=== PATIENT | male | born 1980 | race African-American/Black ===

== ENCOUNTER 2021-04-03 17:11 | Outpatient (REF) | payer OTHER, SELFPAY ==
--- NOTE | ~2021-04-03 | XR_ITS ---
EXAMINATION: XR FOOT, LEFT CLINICAL INFORMATION: Pain. Pain mainly base of first toe. COMPARISON: None TECHNIQUE: AP, lateral, and oblique views of the left foot. FINDINGS: Small enthesophyte of the Achilles insertion on the posterior calcaneus. Bones have normal alignment throughout the foot. No fracture or subluxation. No erosion or periostitis. No radiographic findings of a significant degenerative or inflammatory arthropathy. There is a bipartite configuration of the medial sesamoid of the great toe. The Lisfranc joint and Chopart joint are unremarkable. XR/XR foot LT min 3V IMPRESSION: No specific source of pain is identified. No evidence of metatarsal fracture.
== END 2021-04-03 17:12 | disposition home or self-care (01) ==
LOC: HO.XRAY 17:11
PROVIDERS: Absent Provider Internal Medicine; PCP Internal Medicine; Visit Provider Emergency Medicine
DX: M79.672 Pain in left foot (principal)
CPT/HCPCS: 73630

== ENCOUNTER → 2024-08-23 09:58 | Outpatient (BNVA) | payer SELFPAY | PROVIDERS: PCP Internal Medicine; Visit Provider Internal Medicine | DX: Z02.79 Encounter for issue of other medical certificate (principal) ==